=== PATIENT | female | born 1935 | race Caucasian/White ===

== ENCOUNTER → 2016-09-14 | Outpatient (CLI) | payer MEDICARE ==
[~2016-09-14] MED LIST: AMLO5TAB4 PO; APIX5TAB PO; ASPI-504 PO; ATEN-155 PO; ATN50T PO; AZIT250T81 PO; CALC1TAB88 PO; CHLO473M PO; CHOL400T PO; CLON0.252 PO; CLON0.5T3 PO; DICL100G13 TOP; LORA-404 PO; LOSA100T8 PO; MAGN250T7 PO; OMEG500C PO; OMEP10CA2 PO; SIMV20TA PO; SPRN25T PO
[2016-09-14 07:54] LABS: BASOPHILS % (AUTO) 0 % (0-2); EOSINOPHILS # (AUTO) 0.1 10^3uL; EOSINOPHILS % (AUTO) 1 % (0-4); LYMPHOCYTES # (AUTO) 1.7 X10^3; MEAN CORPUSCULAR HEMOGLOBIN 30.3 PG (26.0-34.0); MEAN CORPUSCULAR HGB CONC 33.5 g/dL (31.0-37.0); MEAN CORPUSCULAR VOLUME 90 FL (80-100); MEAN PLATELET VOLUME 8.8 FL (6.0-9.5); MONOCYTES # (AUTO) 0.8 X10^3; MONOCYTES % (AUTO) 12 % (3-11); NEUTROPHILS # (AUTO) 3.9 X10^3; NEUTROPHILS % (AUTO) 60 % (51-67); PLATELET COUNT 291 10^3uL (150-450); WHITE BLOOD COUNT 6.54 10^3uL (4.0-11.0)
[2016-09-14 08:15] LABS: ALBUMIN 4.3 g/dL (3.4-5.0); ANION GAP 14.8 MEQ/L (3-15); CALCULATED IONIZED CALCIUM 4.3 mg/dL (3.8-4.6); TOTAL PROTEIN 7.3 g/dL (6.4-8.5)
== END ==
LOC: LAB 07:35
PROVIDERS: ATTEND Internal Medicine
DX: Z00.00 Encounter for general adult medical examination without abnormal findings (principal); I10 Essential (primary) hypertension; E78.4 Other hyperlipidemia; I48.2 Chronic atrial fibrillation; M89.9 Disorder of bone, unspecified
CPT/HCPCS: 36415; 80053; 80061; 82306; 84443; 85025